=== PATIENT | male | born 1985 | race African-American/Black ===

== ENCOUNTER 2018-03-16 16:25 | Inpatient (IN) | payer OTHER ==
[~2018-03-16] VITALS: Ht 175.3 cm; Wt 72.6 kg
[2018-03-16 21:43] LABS: APPEARANCE,URINE CLEAR (CLEAR); BILIRUBIN,URINE NEGATIVE (NEGATIVE); GLUCOSE, URINE (UA) NEGATIVE (NEGATIVE); KETONES,URINE NEGATIVE (NEGATIVE); LEUKOCYTE ESTERASE ,URINE NEGATIVE (NEGATIVE); NITRATE,URINE NEGATIVE (NEGATIVE); OCCULT BLOOD,URINE NEGATIVE (NEGATIVE); PROTEIN,URINE NEGATIVE (NEGATIVE)
[2018-03-16 21:48] LABS: RBC,URINE None Seen /HPF (0-2); WBC,URINE None Seen /HPF (0-5)
[2018-03-16 21:49] LABS: BACTERIA,URINE None Seen /HPF (None Seen); SQUAMOUS EPITHELIAL CELL,UR Rare /LPF (None Seen)
[2018-03-16] MEDS ORDERED: DOCUSATE SODIUM 283 MG/5 ML MINI-ENEMA PR PRN (22:00)
[2018-03-16] MEDS ORDERED: MELATONIN 3 MG TABLET PO PRN (22:00)
[2018-03-16 22:08] VITALS: BP 133/94
[2018-03-16 23:36] VITALS: BP 122/74
[2018-03-17] MEDS: OxyCODONE HCL 5 MG IR TABLET PO PRN ×3 (00:33→13:55)
[2018-03-17] MEDS: ACETAMINOPHEN 325 MG TABLET PO PRN ×3 (02:18→17:24)
[2018-03-17 06:36] LABS: BASOPHILS % (AUTO) 1.2 % (0.0-2.0); EOSINOPHILS % (AUTO) 4.2 % (1.0-6.0); HEMATOCRIT 34.4 % (41-53); HEMOGLOBIN 11.8 g/dL (13.5-17.5); LYMPHOCYTES # (AUTO) 1.6 K/uL (1.0-4.8); LYMPHOCYTES % (AUTO) 21.5 % (22.0-44.0); MEAN CORPUSCULAR HGB CONC 34.3 G/dL (31.0-37.0); MEAN CORPUSCULAR VOLUME 91 fL (80-100); MONOCYTES # (AUTO) 0.6 K/uL (0.1-1.0); MONOCYTES % (AUTO) 8.2 % (2.0-9.0); NEUTROPHILS # (AUTO) 4.8 K/uL (1.8-7.7); NEUTROPHILS % (AUTO) 64.9 % (40.0-70.0); PLATELET COUNT (AUTO) 371 K/uL (150-450); RED CELL DISTRIBUTION WIDTH 15.4 % (11.5-14.5)
[2018-03-17 06:47] LABS: ALANINE AMINOTRANSFERASE 146 U/L (12-78); ALBUMIN 3.2 g/dL (3.4-5.0); ALKALINE PHOSPHATASE 265 U/L (46-116); ANION GAP 8 mmol/L (8-16); ASPARTATE AMINOTRANSFERASE 61 U/L (15-37); BILIRUBIN,TOTAL 0.6 mg/dL (0.1-1.0); CALCIUM, TOTAL 9.3 mg/dL (8.8-10.5); CARBON DIOXIDE 28 mmol/L (22-29); CHLORIDE 102 mmol/L (98-107); CREATININE 1.06 mg/dL (0.60-1.30); GLOMERULAR FILTR. RATE CALC > 60 mL/min (>60); GLUCOSE,RANDOM 105 mg/dL (70-110); POTASSIUM 4.3 mmol/L (3.5-5.1); SODIUM SERUM 138 mmol/L (136-145); TOTAL PROTEIN, SERUM 7.8 g/dL (6.4-8.2); UREA NITROGEN, BLOOD 10 mg/dL (7-18)
[2018-03-17 07:19] VITALS: BP 151/89
[2018-03-17] MEDS: CIPROFLOXACIN HCL 0.2%/HYDROCORT 1% 10 ML OTIC SUSPENSION AS SCH ×2 (09:20→21:38)
[2018-03-17] MEDS: POLYETHYLENE GLYCOL 3350 17 GM PACKET PO SCH (09:20)
[2018-03-17] MEDS: CHLORHEXIDINE GLUCONATE 0.12% 15 ML UDCUP ORAL RINSE PO SCH ×2 (09:20→21:38)
[2018-03-17] MEDS: DOCUSATE SODIUM 100 MG CAPSULE PO SCH ×2 (09:21→21:37)
[2018-03-17 15:45] VITALS: BP_SYST 120; BP_SYST 136; BP_DIAS 64; BP_DIAS 72
[2018-03-17] MEDS: SENNA 187 MG TABLET PO SCH (21:37)
[2018-03-17] MEDS: OxyCODONE HCL 20 MG ER TABLET PO SCH (21:38)
[2018-03-18 05:28] VITALS: BP 136/82
[2018-03-18] MEDS: ACETAMINOPHEN 325 MG TABLET PO PRN (05:28)
[2018-03-18] MEDS: OMEPRAZOLE 20 MG CAPSULE PO SCH (07:06)
[2018-03-18 08:00] VITALS: BP 131/87
[2018-03-18] MEDS: DOCUSATE SODIUM 100 MG CAPSULE PO SCH ×2 (09:27→21:52)
[2018-03-18] MEDS: OxyCODONE HCL 20 MG ER TABLET PO SCH ×2 (09:27→21:52)
[2018-03-18] MEDS: CIPROFLOXACIN HCL 0.2%/HYDROCORT 1% 10 ML OTIC SUSPENSION AS SCH ×2 (09:27→21:52)
[2018-03-18] MEDS: CHLORHEXIDINE GLUCONATE 0.12% 15 ML UDCUP ORAL RINSE PO SCH ×2 (09:27→21:52)
[2018-03-18] MEDS: POLYETHYLENE GLYCOL 3350 17 GM PACKET PO SCH (09:30)
[2018-03-18] MEDS: OxyCODONE HCL 5 MG IR TABLET PO PRN (14:00)
[2018-03-18 15:10] VITALS: BP 138/86
[2018-03-18] MEDS: SENNA 187 MG TABLET PO SCH (21:52)
[2018-03-19 00:39] VITALS: BP 129/77
[2018-03-19] MEDS: OMEPRAZOLE 20 MG CAPSULE PO SCH (06:02)
[2018-03-19] MEDS: OxyCODONE HCL 5 MG IR TABLET PO PRN (07:33)
[2018-03-19 07:49] VITALS: BP 126/90
[2018-03-19] MEDS: CHLORHEXIDINE GLUCONATE 0.12% 15 ML UDCUP ORAL RINSE PO SCH ×2 (08:22→21:45)
[2018-03-19] MEDS: POLYETHYLENE GLYCOL 3350 17 GM PACKET PO SCH (08:22)
[2018-03-19] MEDS: DOCUSATE SODIUM 100 MG CAPSULE PO SCH ×2 (08:22→21:46)
[2018-03-19] MEDS: OxyCODONE HCL 20 MG ER TABLET PO SCH ×2 (08:22→21:45)
[2018-03-19] MEDS: CIPROFLOXACIN HCL 0.2%/HYDROCORT 1% 10 ML OTIC SUSPENSION AS SCH ×2 (08:22→21:45)
[2018-03-19 15:34] VITALS: BP 130/83
[2018-03-19] MEDS ORDERED: MAGNESIUM HYDROXIDE SUSPENSION 30 ML UDCUP PO PRN (15:45)
[2018-03-19] MEDS: ACETAMINOPHEN 325 MG TABLET PO PRN (16:36)
[2018-03-19] MEDS: SENNA 187 MG TABLET PO SCH (21:46)
[2018-03-20] VITALS: BP 135/74
[2018-03-20] MEDS: OMEPRAZOLE 20 MG CAPSULE PO SCH (06:26)
[2018-03-20 08:00] VITALS: BP 114/81
[2018-03-20] MEDS: POLYETHYLENE GLYCOL 3350 17 GM PACKET PO SCH (09:24)
[2018-03-20] MEDS: OxyCODONE HCL 20 MG ER TABLET PO SCH ×2 (09:24→20:14)
[2018-03-20] MEDS: DOCUSATE SODIUM 100 MG CAPSULE PO SCH ×2 (09:24→20:14)
[2018-03-20] MEDS: CHLORHEXIDINE GLUCONATE 0.12% 15 ML UDCUP ORAL RINSE PO SCH ×2 (09:24→20:14)
[2018-03-20] MEDS: CIPROFLOXACIN HCL 0.2%/HYDROCORT 1% 10 ML OTIC SUSPENSION AS SCH ×2 (09:24→20:13)
[2018-03-20 15:10] VITALS: BP 130/80
[2018-03-20] MEDS: SENNA 187 MG TABLET PO SCH (20:14)
[2018-03-20 23:30] VITALS: BP 129/78
[2018-03-21] MEDS: OxyCODONE HCL 5 MG IR TABLET PO PRN ×2 (05:21→11:50)
[2018-03-21] MEDS: OMEPRAZOLE 20 MG CAPSULE PO SCH (05:21)
[2018-03-21 07:24] VITALS: BP 124/72
[2018-03-21] MEDS: CHLORHEXIDINE GLUCONATE 0.12% 15 ML UDCUP ORAL RINSE PO SCH ×2 (07:53→20:53)
[2018-03-21] MEDS: DOCUSATE SODIUM 250 MG CAPSULE PO SCH ×2 (07:53→20:54)
[2018-03-21] MEDS: POLYETHYLENE GLYCOL 3350 17 GM PACKET PO SCH (07:53)
[2018-03-21] MEDS: CIPROFLOXACIN HCL 0.2%/HYDROCORT 1% 10 ML OTIC SUSPENSION AS SCH (07:57)
[2018-03-21] MEDS: OxyCODONE HCL 20 MG ER TABLET PO SCH ×2 (07:57→20:54)
[2018-03-21 15:55] VITALS: BP 152/82
[2018-03-21] MEDS: GABAPENTIN 100 MG CAPSULE PO SCH (20:54)
[2018-03-21] MEDS: SENNA 187 MG TABLET PO SCH (20:54)
[2018-03-21] MEDS ORDERED: *NON-FORMULARY MED [ENTER DRUG, DOSE, FREQ IN COMMENTS] CLINICAL ONE (23:32)
[2018-03-22] VITALS: BP 131/77
[2018-03-22] MEDS: OMEPRAZOLE 20 MG CAPSULE PO SCH (06:48)
[2018-03-22 07:31] VITALS: BP 131/99
[2018-03-22] MEDS: GABAPENTIN 100 MG CAPSULE PO SCH ×2 (08:56→20:23)
[2018-03-22] MEDS: CHLORHEXIDINE GLUCONATE 0.12% 15 ML UDCUP ORAL RINSE PO SCH ×2 (08:56→20:22)
[2018-03-22] MEDS: POLYETHYLENE GLYCOL 3350 17 GM PACKET PO SCH (08:56)
[2018-03-22] MEDS: OxyCODONE HCL 20 MG ER TABLET PO SCH ×2 (08:56→20:23)
[2018-03-22] MEDS: DOCUSATE SODIUM 250 MG CAPSULE PO SCH ×2 (08:56→20:23)
[2018-03-22] MEDS: DEXAMETHASONE AU SCH ×2 (08:57→20:22)
[2018-03-22] MEDS: CIPROFLOXACIN AU SCH ×2 (08:57→20:22)
[2018-03-22] MEDS ORDERED: *NON-FORMULARY MED [ENTER DRUG, DOSE, FREQ IN COMMENTS] CLINICAL ONE (09:00)
[2018-03-22 16:30] VITALS: BP 121/72
[2018-03-22] MEDS: SENNA 187 MG TABLET PO SCH (20:23)
[2018-03-23 00:55] VITALS: BP 123/79
[2018-03-23] MEDS: ACETAMINOPHEN 325 MG TABLET PO PRN (00:55)
[2018-03-23] MEDS: OMEPRAZOLE 20 MG CAPSULE PO SCH (06:26)
[2018-03-23 06:57] LABS: BASOPHILS % (AUTO) 0.5 % (0.0-2.0); EOSINOPHILS % (AUTO) 11.4 % (1.0-6.0); HEMATOCRIT 36.7 % (41-53); HEMOGLOBIN 12.5 g/dL (13.5-17.5); LYMPHOCYTES # (AUTO) 1.8 K/uL (1.0-4.8); LYMPHOCYTES % (AUTO) 34.2 % (22.0-44.0); MEAN CORPUSCULAR VOLUME 91 fL (80-100); MONOCYTES # (AUTO) 0.5 K/uL (0.1-1.0); MONOCYTES % (AUTO) 8.9 % (2.0-9.0); NEUTROPHILS # (AUTO) 2.3 K/uL (1.8-7.7); PLATELET COUNT (AUTO) 243 K/uL (150-450); RED BLOOD CELL COUNT(AUTO) 4.04 MIL/uL (4.50-5.90); RED CELL DISTRIBUTION WIDTH 14.7 % (11.5-14.5)
[2018-03-23 07:13] LABS: ALANINE AMINOTRANSFERASE 104 U/L (12-78); ALBUMIN 3.4 g/dL (3.4-5.0); ALKALINE PHOSPHATASE 236 U/L (46-116); ANION GAP 6 mmol/L (8-16); ASPARTATE AMINOTRANSFERASE 35 U/L (15-37); BILIRUBIN,TOTAL 0.5 mg/dL (0.1-1.0); C-REACTIVE PROTEIN QUANT 0.45 mg/dL (0.00-0.30); CARBON DIOXIDE 31 mmol/L (22-29); CHLORIDE 98 mmol/L (98-107); CREATININE 1.14 mg/dL (0.60-1.30); GLOMERULAR FILTR. RATE CALC > 60 mL/min (>60); GLUCOSE,RANDOM 107 mg/dL (70-110); POTASSIUM 3.9 mmol/L (3.5-5.1); SODIUM SERUM 135 mmol/L (136-145); TOTAL PROTEIN, SERUM 7.8 g/dL (6.4-8.2); UREA NITROGEN, BLOOD 14 mg/dL (7-18)
[2018-03-23 07:58] VITALS: BP 116/66
[2018-03-23] MEDS: DEXAMETHASONE AU SCH ×2 (08:03→20:49)
[2018-03-23] MEDS: DOCUSATE SODIUM 250 MG CAPSULE PO SCH ×2 (08:03→20:49)
[2018-03-23] MEDS: CHLORHEXIDINE GLUCONATE 0.12% 15 ML UDCUP ORAL RINSE PO SCH ×2 (08:03→20:48)
[2018-03-23] MEDS: CIPROFLOXACIN AU SCH ×2 (08:03→20:49)
[2018-03-23] MEDS: GABAPENTIN 100 MG CAPSULE PO SCH ×2 (08:03→20:48)
[2018-03-23] MEDS: OxyCODONE HCL 20 MG ER TABLET PO SCH ×2 (08:03→20:49)
[2018-03-23] MEDS: POLYETHYLENE GLYCOL 3350 17 GM PACKET PO SCH (08:03)
[2018-03-23 08:31] LABS: ERYTHROCYTE SEDIMENTATION RATE 55 MM/HR (0-15)
[2018-03-23 15:15] VITALS: BP 109/63
[2018-03-23] MEDS: SENNA 187 MG TABLET PO SCH (20:48)
[2018-03-24 00:25] VITALS: BP 126/73
[2018-03-24] MEDS: OMEPRAZOLE 20 MG CAPSULE PO SCH (06:25)
[2018-03-24 07:15] VITALS: BP 128/74
[2018-03-24] MEDS: GABAPENTIN 100 MG CAPSULE PO SCH ×2 (08:25→20:11)
[2018-03-24] MEDS: POLYETHYLENE GLYCOL 3350 17 GM PACKET PO SCH (08:26)
[2018-03-24] MEDS: CIPROFLOXACIN AU SCH ×2 (08:26→20:11)
[2018-03-24] MEDS: DEXAMETHASONE AU SCH ×2 (08:26→20:11)
[2018-03-24] MEDS: OxyCODONE HCL 20 MG ER TABLET PO SCH (08:26)
[2018-03-24] MEDS: CHLORHEXIDINE GLUCONATE 0.12% 15 ML UDCUP ORAL RINSE PO SCH ×2 (08:26→20:11)
[2018-03-24] MEDS: DOCUSATE SODIUM 250 MG CAPSULE PO SCH ×2 (08:28→20:11)
[2018-03-24 16:45] VITALS: BP 107/76
[2018-03-24] MEDS: SENNA 187 MG TABLET PO SCH (20:11)
[2018-03-25 01:00] VITALS: BP 122/73
[2018-03-25] MEDS: OMEPRAZOLE 20 MG CAPSULE PO SCH (06:39)
[2018-03-25 07:48] VITALS: BP 133/77
[2018-03-25] MEDS: DOCUSATE SODIUM 250 MG CAPSULE PO SCH ×2 (08:42→22:23)
[2018-03-25] MEDS: CHLORHEXIDINE GLUCONATE 0.12% 15 ML UDCUP ORAL RINSE PO SCH ×2 (08:42→22:23)
[2018-03-25] MEDS: GABAPENTIN 100 MG CAPSULE PO SCH ×2 (08:42→22:23)
[2018-03-25] MEDS: POLYETHYLENE GLYCOL 3350 17 GM PACKET PO SCH (08:42)
[2018-03-25] MEDS: ENOXAPARIN SODIUM 30 MG/0.3 ML PF SYRINGE SQ SCH (08:43)
[2018-03-25] MEDS: CIPROFLOXACIN AU SCH ×2 (08:43→22:22)
[2018-03-25] MEDS: DEXAMETHASONE AU SCH ×2 (08:43→22:22)
[2018-03-25 17:38] VITALS: BP 156/86
[2018-03-25] MEDS: SENNA 187 MG TABLET PO SCH (22:23)
[2018-03-25 23:00] VITALS: BP 138/75
[2018-03-26] MEDS: OMEPRAZOLE 20 MG CAPSULE PO SCH (07:02)
[2018-03-26 07:15] VITALS: BP 146/89
[2018-03-26] MEDS: CIPROFLOXACIN AU SCH ×2 (08:40→20:35)
[2018-03-26] MEDS: ENOXAPARIN SODIUM 30 MG/0.3 ML PF SYRINGE SQ SCH (08:40)
[2018-03-26] MEDS: DEXAMETHASONE AU SCH ×2 (08:40→20:35)
[2018-03-26] MEDS: POLYETHYLENE GLYCOL 3350 17 GM PACKET PO SCH ×2 (08:40→09:00)
[2018-03-26] MEDS: GABAPENTIN 100 MG CAPSULE PO SCH ×2 (08:41→20:36)
[2018-03-26] MEDS: CHLORHEXIDINE GLUCONATE 0.12% 15 ML UDCUP ORAL RINSE PO SCH ×2 (08:41→20:35)
[2018-03-26] MEDS: DOCUSATE SODIUM 250 MG CAPSULE PO SCH ×2 (08:41→20:36)
[2018-03-26] MEDS ORDERED: ONDANSETRON HCL 4 MG TABLET PO PRN (13:45)
[2018-03-26 16:32] VITALS: BP 131/76
[2018-03-26] MEDS: SENNA 187 MG TABLET PO SCH (20:36)
[2018-03-26 23:00] VITALS: BP 123/77
[2018-03-27] MEDS: ACETAMINOPHEN 325 MG TABLET PO PRN (03:29)
[2018-03-27] MEDS: OMEPRAZOLE 20 MG CAPSULE PO SCH (07:48)
[2018-03-27 09:00] VITALS: BP 126/83
[2018-03-27] MEDS: ENOXAPARIN SODIUM 30 MG/0.3 ML PF SYRINGE SQ SCH (09:28)
[2018-03-27] MEDS: CHLORHEXIDINE GLUCONATE 0.12% 15 ML UDCUP ORAL RINSE PO SCH ×2 (09:28→20:39)
[2018-03-27] MEDS: POLYETHYLENE GLYCOL 3350 17 GM PACKET PO SCH (09:28)
[2018-03-27] MEDS: DOCUSATE SODIUM 250 MG CAPSULE PO SCH ×2 (09:28→20:40)
[2018-03-27] MEDS: GABAPENTIN 100 MG CAPSULE PO SCH ×2 (09:28→20:39)
[2018-03-27] MEDS: DEXAMETHASONE AU SCH ×2 (09:29→20:45)
[2018-03-27] MEDS: CIPROFLOXACIN AU SCH ×2 (09:29→20:45)
[2018-03-27 17:09] VITALS: BP 151/63
[2018-03-27 20:34] VITALS: BP 134/89
[2018-03-27] MEDS: SENNA 187 MG TABLET PO SCH (20:40)
[2018-03-27 23:15] VITALS: BP 134/87
[2018-03-28 07:15] VITALS: BP 142/82
[2018-03-28] MEDS: CHLORHEXIDINE GLUCONATE 0.12% 15 ML UDCUP ORAL RINSE PO SCH ×2 (08:46→20:56)
[2018-03-28] MEDS: CIPROFLOXACIN AU SCH ×2 (08:46→20:55)
[2018-03-28] MEDS: ACETAMINOPHEN 325 MG TABLET PO PRN (08:46)
[2018-03-28] MEDS: POLYETHYLENE GLYCOL 3350 17 GM PACKET PO SCH (08:46)
[2018-03-28] MEDS: DEXAMETHASONE AU SCH ×2 (08:46→20:55)
[2018-03-28] MEDS: DOCUSATE SODIUM 250 MG CAPSULE PO SCH ×2 (08:46→20:56)
[2018-03-28] MEDS: GABAPENTIN 100 MG CAPSULE PO SCH ×2 (08:46→20:56)
[2018-03-28] MEDS: ENOXAPARIN SODIUM 30 MG/0.3 ML PF SYRINGE SQ SCH (08:48)
[2018-03-28 15:24] VITALS: BP 134/86
[2018-03-28] MEDS: SENNA 187 MG TABLET PO SCH (20:56)
[2018-03-29] MEDS: FAMOTIDINE 20 MG TABLET PO SCH (07:48)
[2018-03-29] MEDS: POLYETHYLENE GLYCOL 3350 17 GM PACKET PO SCH (08:57)
[2018-03-29] MEDS: ENOXAPARIN SODIUM 30 MG/0.3 ML PF SYRINGE SQ SCH (08:58)
[2018-03-29] MEDS: CHLORHEXIDINE GLUCONATE 0.12% 15 ML UDCUP ORAL RINSE PO SCH ×2 (08:59→21:27)
[2018-03-29] MEDS: GABAPENTIN 100 MG CAPSULE PO SCH ×2 (08:59→21:27)
[2018-03-29] MEDS: DOCUSATE SODIUM 250 MG CAPSULE PO SCH ×2 (08:59→21:27)
[2018-03-29] MEDS: DEXAMETHASONE AU SCH ×2 (09:00→21:29)
[2018-03-29] MEDS: CIPROFLOXACIN AU SCH ×2 (09:00→21:29)
[2018-03-29 10:14] VITALS: BP 132/76
[2018-03-29 15:03] VITALS: BP 141/82
[2018-03-29] MEDS: SENNA 187 MG TABLET PO SCH (21:27)
[2018-03-30 00:27] VITALS: BP 131/69
[2018-03-30 07:12] VITALS: BP 134/73
[2018-03-30] MEDS: FAMOTIDINE 20 MG TABLET PO SCH (08:09)
[2018-03-30] MEDS: CIPROFLOXACIN AU SCH ×2 (08:10→20:28)
[2018-03-30] MEDS: CHLORHEXIDINE GLUCONATE 0.12% 15 ML UDCUP ORAL RINSE PO SCH ×3 (08:10→20:27)
[2018-03-30] MEDS: POLYETHYLENE GLYCOL 3350 17 GM PACKET PO SCH (08:10)
[2018-03-30] MEDS: GABAPENTIN 100 MG CAPSULE PO SCH ×2 (08:10→20:27)
[2018-03-30] MEDS: DOCUSATE SODIUM 250 MG CAPSULE PO SCH ×2 (08:10→20:27)
[2018-03-30] MEDS: ENOXAPARIN SODIUM 30 MG/0.3 ML PF SYRINGE SQ SCH (08:10)
[2018-03-30] MEDS: DEXAMETHASONE AU SCH ×2 (08:10→20:28)
[2018-03-30 16:25] VITALS: BP 126/61
[2018-03-30] MEDS: SENNA 187 MG TABLET PO SCH (20:28)
[2018-03-31 05:10] VITALS: BP 130/72
[2018-03-31] MEDS: ACETAMINOPHEN 325 MG TABLET PO PRN (05:10)
[2018-03-31 08:15] VITALS: BP 133/71
[2018-03-31] MEDS: POLYETHYLENE GLYCOL 3350 17 GM PACKET PO SCH (09:00)
[2018-03-31] MEDS: GABAPENTIN 100 MG CAPSULE PO SCH ×2 (09:22→21:30)
[2018-03-31] MEDS: ENOXAPARIN SODIUM 30 MG/0.3 ML PF SYRINGE SQ SCH (09:23)
[2018-03-31] MEDS: DOCUSATE SODIUM 250 MG CAPSULE PO SCH ×2 (09:23→21:25)
[2018-03-31] MEDS: CHLORHEXIDINE GLUCONATE 0.12% 15 ML UDCUP ORAL RINSE PO SCH ×2 (09:23→21:25)
[2018-03-31] MEDS: FAMOTIDINE 20 MG TABLET PO SCH (09:23)
[2018-03-31] MEDS: DEXAMETHASONE AU SCH ×3 (09:24→21:25)
[2018-03-31] MEDS: CIPROFLOXACIN AU SCH ×3 (09:24→21:25)
[2018-03-31 15:17] VITALS: BP 126/81
[2018-03-31] MEDS: SENNA 187 MG TABLET PO SCH (21:25)
[2018-04-01] MEDS ORDERED: GABA-529 PO (02:45)
[2018-04-01] MEDS ORDERED: MIRALAX PO (02:45)
[2018-04-01] MEDS ORDERED: DOCU250C91 PO (02:45)
[2018-04-01] MEDS ORDERED: FAMO20 PO (02:45)
[2018-04-01] MEDS ORDERED: PERID15L PO (02:45)
[2018-04-01] MEDS: ACETAMINOPHEN 325 MG TABLET PO PRN (03:32)
[2018-04-01] MEDS: DOCUSATE SODIUM 250 MG CAPSULE PO SCH ×2 (07:53→20:23)
[2018-04-01] MEDS: CHLORHEXIDINE GLUCONATE 0.12% 15 ML UDCUP ORAL RINSE PO SCH ×2 (07:53→20:22)
[2018-04-01] MEDS: POLYETHYLENE GLYCOL 3350 17 GM PACKET PO SCH (07:53)
[2018-04-01] MEDS: GABAPENTIN 100 MG CAPSULE PO SCH ×2 (07:53→20:23)
[2018-04-01] MEDS: FAMOTIDINE 20 MG TABLET PO SCH (07:53)
[2018-04-01] MEDS: ENOXAPARIN SODIUM 30 MG/0.3 ML PF SYRINGE SQ SCH (07:53)
[2018-04-01 08:02] VITALS: BP 132/76
[2018-04-01 16:40] VITALS: BP 133/81
[2018-04-01] MEDS: SENNA 187 MG TABLET PO SCH (20:23)
[2018-04-01 23:58] VITALS: BP 128/82
[2018-04-02] MEDS: POLYETHYLENE GLYCOL 3350 17 GM PACKET PO SCH (08:20)
[2018-04-02] MEDS: ENOXAPARIN SODIUM 30 MG/0.3 ML PF SYRINGE SQ SCH (08:20)
[2018-04-02] MEDS: CHLORHEXIDINE GLUCONATE 0.12% 15 ML UDCUP ORAL RINSE PO SCH ×2 (08:20→20:21)
[2018-04-02] MEDS: FAMOTIDINE 20 MG TABLET PO SCH (08:20)
[2018-04-02] MEDS: GABAPENTIN 100 MG CAPSULE PO SCH ×2 (08:20→20:20)
[2018-04-02] MEDS: DOCUSATE SODIUM 250 MG CAPSULE PO SCH ×2 (08:22→20:21)
[2018-04-02 08:28] VITALS: BP 132/78
[2018-04-02] MEDS: ACETAMINOPHEN 325 MG TABLET PO PRN (09:30)
[2018-04-02 16:22] VITALS: BP 114/83
[2018-04-02] MEDS: SENNA 187 MG TABLET PO SCH (20:21)
[2018-04-02 23:53] VITALS: BP 124/79
[2018-04-03] MEDS: FAMOTIDINE 20 MG TABLET PO SCH (08:10)
[2018-04-03] MEDS: DOCUSATE SODIUM 250 MG CAPSULE PO SCH ×2 (08:10→21:23)
[2018-04-03] MEDS: CHLORHEXIDINE GLUCONATE 0.12% 15 ML UDCUP ORAL RINSE PO SCH ×2 (08:10→21:23)
[2018-04-03] MEDS: POLYETHYLENE GLYCOL 3350 17 GM PACKET PO SCH (08:10)
[2018-04-03] MEDS: GABAPENTIN 100 MG CAPSULE PO SCH ×2 (08:10→21:23)
[2018-04-03] MEDS: ENOXAPARIN SODIUM 30 MG/0.3 ML PF SYRINGE SQ SCH (08:10)
[2018-04-03] MEDS: ACETAMINOPHEN 325 MG TABLET PO PRN (10:37)
[2018-04-03 10:40] VITALS: BP 134/85
[2018-04-03] MEDS: SENNA 187 MG TABLET PO SCH (21:23)
[2018-04-03 22:30] VITALS: BP 118/66
[2018-04-04 00:13] VITALS: BP 129/76
[2018-04-04 08:00] VITALS: BP 132/79
[2018-04-04] MEDS: CHLORHEXIDINE GLUCONATE 0.12% 15 ML UDCUP ORAL RINSE PO SCH ×2 (08:19→20:09)
[2018-04-04] MEDS: POLYETHYLENE GLYCOL 3350 17 GM PACKET PO SCH (08:19)
[2018-04-04] MEDS: GABAPENTIN 100 MG CAPSULE PO SCH ×2 (08:20→20:09)
[2018-04-04] MEDS: DOCUSATE SODIUM 250 MG CAPSULE PO SCH ×2 (08:20→20:09)
[2018-04-04] MEDS: ENOXAPARIN SODIUM 30 MG/0.3 ML PF SYRINGE SQ SCH (08:20)
[2018-04-04] MEDS: FAMOTIDINE 20 MG TABLET PO SCH (08:20)
[2018-04-04 15:07] VITALS: BP 123/79
[2018-04-04] MEDS: SENNA 187 MG TABLET PO SCH (20:09)
[2018-04-05 06:10] VITALS: BP 129/67
== END 2018-04-05 06:50 | disposition home or self-care (01) | DRG 963 ==
LOC: 2WR 20:00
DX: S06.330A Contusion and laceration of cerebrum, unspecified, without loss of consciousness, initial encounter (principal); J96.01 Acute respiratory failure with hypoxia; S36.116A Major laceration of liver, initial encounter; J18.9 Pneumonia, unspecified organism; S22.32XA Fracture of one rib, left side, initial encounter for closed fracture; S27.0XXA Traumatic pneumothorax, initial encounter; S36.039A Unspecified laceration of spleen, initial encounter; S27.322A Contusion of lung, bilateral, initial encounter; J98.11 Atelectasis; S02.401A Maxillary fracture, unspecified side, initial encounter for closed fracture; S02.81XA Fracture of other specified skull and facial bones, right side, initial encounter for closed fracture; S06.0X0A Concussion without loss of consciousness, initial encounter; S06.2X0A Diffuse traumatic brain injury without loss of consciousness, initial encounter; S42.002A Fracture of unspecified part of left clavicle, initial encounter for closed fracture; S82.452A Displaced comminuted fracture of shaft of left fibula, initial encounter for closed fracture; S80.02XA Contusion of left knee, initial encounter; G54.0 Brachial plexus disorders; G47.00 Insomnia, unspecified; D64.9 Anemia, unspecified; G93.89 Other specified disorders of brain; K21.9 Gastro-esophageal reflux disease without esophagitis; K59.00 Constipation, unspecified; Z82.49 Family history of ischemic heart disease and other diseases of the circulatory system; Z90.49 Acquired absence of other specified parts of digestive tract; Z79.899 Other long term (current) drug therapy
CPT/HCPCS: 76700; 85651; 86140; 87081; 92507; 92523; 93970; 97110; 97112; 97116; 97163; 97167; 97530; 97535; 99366; J1650; Q0162